=== PATIENT | female | born 1940 | race Caucasian/White ===

== ENCOUNTER → 2016-05-13 | Outpatient (CLI) | payer MEDICARE ==
--- NOTE | 2016-05-18 09:14 | MM ---
Reason for exam: screening (asymptomatic). Last mammogram was performed 2 years and 5 months ago. History: Patient is postmenopausal. Family history of breast cancer in paternal cousin. Took estrogen for 6 years. Took progesterone for 6 years. Physical Findings: A clinical breast exam by your physician is recommended on an annual basis and results should be correlated with mammographic findings. MG Screening Mammo w CAD Bilateral CC and MLO view(s) were taken. Prior study comparison: December 28, 2013, bilateral MG screening mammo w CAD. December 23, 2012, bilateral digital screening mammo w/CAD. There are scattered fibroglandular densities. Finding: There are typically benign grouped/clustered, fine calcifications in the upper quadrant, middle position of the right breast, increase in number, short term follow up recommended. Focal asymmetry in the right breast is stable. New finding since December 28, 2013 and December 23, 2012. ASSESSMENT: Probably benign, BI-RAD 3 RECOMMENDATION: Follow-up diagnostic mammogram of the right breast in 6 months.
== END | disposition home or self-care (01) ==
LOC: RADMAMWWP 13:49
PROVIDERS: ATTEND Internal Medicine
DX: Z12.31 Encounter for screening mammogram for malignant neoplasm of breast (principal)

== ENCOUNTER → 2016-11-17 | Outpatient (CLI) | payer MEDICARE ==
--- NOTE | 2016-11-17 13:45 | MM ---
Reason for exam: follow-up at short interval from prior study. Last mammogram was performed 6 months ago. History: Patient is postmenopausal. Family history of breast cancer in paternal cousin. Took estrogen for 6 years. Took progesterone for 6 years. Physical Findings: Nurse did not find any significant physical abnormalities on exam. MG 3D Diag Mammo W/Cad RT CC and MLO view(s) were taken of the right breast. Prior study comparison: May 13, 2016, bilateral MG screening mammo w CAD. December 28, 2013, bilateral MG screening mammo w CAD. There are scattered fibroglandular densities. There is no discrete abnormality. These results were verbally communicated with the patient and result sheet given to the patient on 11/17/16. ASSESSMENT: Negative, BI-RAD 1 RECOMMENDATION: Return to routine screening mammogram schedule for both breasts. Back on schedule for May 2017.
== END | disposition home or self-care (01) ==
LOC: RADMAMWWP 12:56
PROVIDERS: ATTEND Internal Medicine
DX: R92.8 Other abnormal and inconclusive findings on diagnostic imaging of breast (principal)
CPT/HCPCS: G0206; G0279

== ENCOUNTER 2017-03-27 11:43 | Inpatient (IN) | payer MEDICARE ==
--- NOTE | 2017-03-27 11:55 | ED ---
Neuro HPI - General Stated Complaint: Hypertension Time Seen by Provider: 03/27/17 11:43 Source: patient, family, EMS, RN notes reviewed Mode of arrival: EMS - History of Present Illness Is the patient presenting with stroke symptoms?: No Initial Comments: This is a 77-year-old female with no personal history of stroke with family history of strokes who is been under last stress recently she was brought in for evaluation due to suspicion for left facial droop and slurred speech with trouble processing a choosing words. This occurred sometime this morning family knows when he talked her and found that she was having difficulty with choosing words. Per her daughter they believe that lasted about 45 minutes. Per EMS she was slow to respond but seemed have no deficits on evaluation of stroke scale. No recent fall fevers chills nausea vomiting sweats or other symptoms - Related Data Home Medications: Home Medications Medication Instructions Recorded Confirmed Aspirin EC [Ecotrin Low Dose] 162 mg PO BID 03/27/17 03/27/17 Aspirin EC [Ecotrin Low Dose] 324 mg PO ONCE 03/27/17 03/27/17 Calcium Carb/Vitamin D3/Vit K1 1 tab PO DAILY 03/27/17 03/27/17 [Citracal Soft Chew] Glucosam/Emir-Msm1/C/Tyrell/Bosw 1 tab PO DAILY 03/27/17 03/27/17 [Glucosamine-Chondroitin Tablet] Losartan Potassium 100 mg PO DAILY 03/27/17 03/27/17 Pravastatin Sodium [Pravachol] 20 mg PO HS 03/27/17 03/27/17 Previous Rx's Medication Instructions Recorded Metoprolol Succinate (ER) [Toprol 50 mg PO DAILY #30 tab.er.24h 07/25/13 XL] Allergies/Adverse Reactions: Allergies Allergy/AdvReac Type Severity Reaction Status Date / Time valsartan [From Diovan] Allergy Rash/Hives Verified 03/27/17 12:17 Review of Systems ROS Statement: Those systems with pertinent positive or pertinent negative responses have been documented in the HPI. ROS Other: All systems not noted in ROS Statement are negative. General Exam - General Exam Comments Initial Comments: This is a well-developed well-nourished awake alert oriented 3 female General appearance: alert, in no apparent distress Head exam: Present: atraumatic, normocephalic, normal inspection Eye exam: Present: normal appearance, PERRL, EOMI. Absent: scleral icterus, conjunctival injection, periorbital swelling ENT exam: Present: normal exam, mucous membranes moist Neck exam: Present: normal inspection. Absent: tenderness, meningismus, lymphadenopathy Respiratory exam: Present: normal lung sounds bilaterally. Absent: respiratory distress, wheezes, rales, rhonchi, stridor Cardiovascular Exam: Present: regular rate, normal rhythm, normal heart sounds. Absent: systolic murmur, diastolic murmur, rubs, gallop, clicks GI/Abdominal exam: Present: soft, normal bowel sounds. Absent: distended, tenderness, guarding, rebound, rigid Extremities exam: Present: normal inspection, full ROM, normal capillary refill. Absent: tenderness, pedal edema, joint swelling, calf tenderness Back exam: Present: normal inspection Neurological exam: Present: alert, oriented X3, CN II-XII intact Psychiatric exam: Present: normal affect, normal mood Skin exam: Present: warm, dry, intact, normal color. Absent: rash Stroke MDM - Lab Data Result diagrams: 03/27/17 12:05 03/27/17 12:05 Lab Results 03/27/17 03/27/17 03/27/17 Range/Units 12:05 12:05 12:05 WBC (3.8-10.6) k/uL RBC (3.80-5.40) m/uL Hgb (11.4-16.0) gm/dL Hct (34.0-46.0) % MCV (80.0-100.0) fL MCH (25.0-35.0) pg MCHC (31.0-37.0) g/dL RDW (11.5-15.5) % Plt Count (150-450) k/uL Neutrophils % % Lymphocytes % % Monocytes % % Eosinophils % % Basophils % % Neutrophils # (1.3-7.7) k/uL Lymphocytes # (1.0-4.8) k/uL Monocytes # (0-1.0) k/uL Eosinophils # (0-0.7) k/uL Basophils # (0-0.2) k/uL Hypochromasia PT (9.0-12.0) sec INR (<1.2) APTT (22.0-30.0) sec Sodium (137-145) mmol/L Potassium (3.5-5.1) mmol/L Chloride (98-107) mmol/L Carbon Dioxide (22-30) mmol/L Anion Gap mmol/L BUN (7-17) mg/dL Creatinine (0.52-1.04) mg/dL Est GFR (MDRD) Af Amer (>60 ml/min/1.73 sqM) Est GFR (MDRD) Non-Af (>60 ml/min/1.73 sqM) Glucose (74-99) mg/dL Calcium (8.4-10.2) mg/dL Total Bilirubin (0.2-1.3) mg/dL AST (14-36) U/L ALT (9-52) U/L Alkaline Phosphatase (38-126) U/L Total Creatine Kinase 56 (30-135) U/L CK-MB (CK-2) 0.7 (0.0-2.4) ng/mL CK-MB (CK-2) Rel Index 1.3 Troponin I <0.012 (0.000-0.034) ng/mL Total Protein (6.3-8.2) g/dL Albumin (3.5-5.0) g/dL Urine Color Light Yellow Urine Appearance Clear (Clear) Urine pH 6.5 (5.0-8.0) Ur Specific [place] 1.006 (1.001-1.035) Urine Protein Negative (Negative) Urine Glucose (UA) Negative (Negative) Urine Ketones Negative (Negative) Urine Blood Negative (Negative) Urine Nitrite Negative (Negative) Urine Bilirubin Negative (Negative) Urine Urobilinogen <2.0 (<2.0) mg/dL Ur Leukocyte Esterase Negative (Negative) Influenza Type A RNA Not Detected (Not Detectd) Influenza Type B (PCR) Not Detected (Not Detectd) 03/27/17 03/27/17 03/27/17 Range/Units 12:05 12:05 12:05 WBC 8.7 (3.8-10.6) k/uL RBC 5.57 H (3.80-5.40) m/uL Hgb 14.4 (11.4-16.0) gm/dL Hct 46.5 H (34.0-46.0) % MCV 83.5 (80.0-100.0) fL MCH 25.8 (25.0-35.0) pg MCHC 30.9 L (31.0-37.0) g/dL RDW 14.1 (11.5-15.5) % Plt Count 233 (150-450) k/uL Neutrophils % 79 % Lymphocytes % 13 % Monocytes % 5 % Eosinophils % 2 % Basophils % 1 % Neutrophils # 6.8 (1.3-7.7) k/uL Lymphocytes # 1.1 (1.0-4.8) k/uL Monocytes # 0.4 (0-1.0) k/uL Eosinophils # 0.2 (0-0.7) k/uL Basophils # 0.1 (0-0.2) k/uL Hypochromasia Slight PT 9.9 (9.0-12.0) sec INR 1.0 (<1.2) APTT 22.4 (22.0-30.0) sec Sodium 143 (137-145) mmol/L Potassium 4.6 (3.5-5.1) mmol/L Chloride 107 (98-107) mmol/L Carbon Dioxide 21 L (22-30) mmol/L Anion Gap 15 mmol/L BUN 16 (7-17) mg/dL Creatinine 0.90 (0.52-1.04) mg/dL Est GFR (MDRD) Af Amer >60 (>60 ml/min/1.73 sqM) Est GFR (MDRD) Non-Af >60 (>60 ml/min/1.73 sqM) Glucose 107 H (74-99) mg/dL Calcium 9.8 (8.4-10.2) mg/dL Total Bilirubin 0.6 (0.2-1.3) mg/dL AST 22 (14-36) U/L ALT 26 (9-52) U/L Alkaline Phosphatase 83 (38-126) U/L Total Creatine Kinase (30-135) U/L CK-MB (CK-2) (0.0-2.4) ng/mL CK-MB (CK-2) Rel Index Troponin I (0.000-0.034) ng/mL Total Protein 7.5 (6.3-8.2) g/dL Albumin 4.5 (3.5-5.0) g/dL Urine Color Urine Appearance (Clear) Urine pH (5.0-8.0) Ur Specific [place] (1.001-1.035) Urine Protein (Negative) Urine Glucose (UA) (Negative) Urine Ketones (Negative) Urine Blood (Negative) Urine Nitrite (Negative) Urine Bilirubin (Negative) Urine Urobilinogen (<2.0) mg/dL Ur Leukocyte Esterase (Negative) Influenza Type A RNA (Not Detectd) Influenza Type B (PCR) (Not Detectd) - NIH Stroke Scale 1a. Level of Consciousness: (0) alert 1b. LOC Questions: (0) answers correctly 1c. LOC Commands: (0) performs tasks correctly 2. Best Gaze: (0) normal 3. Visual: (0) no visual loss 4. Facial Palsy: (0) normal symmetrical movement 5a. Motor Arm Left: (0) no drift 5b. Motor Arm Right: (0) no drift 6a. Motor Leg Left: (0) no drift 6b. Motor Leg Right: (0) no drift 7. Limb Ataxia: (0) absent 8. Sensory: (0) normal 9. Best Language: (0) no aphasia 10. Dysarthria: (0) normal 11. Extinction/Inattention: (0) no abnormality - Medical Decision Making I did discuss findings with the patient and multiple family members patient is improving the presentation seems consistent with a TIA. CAT scan is negative x- rays are negative labs are thus far nondiagnostic. Patient did have a fever when she presented the influenza is negative. This could be in the basis of a nonspecific viral infection no source is identified. Patient will be admitted for evaluation TIA I did discuss case Dr. Gay. - EKG Data -: EKG Interpreted by Me (Atrial fibrillation rate of 97 QRS 82 QT/QTC 382/[address] configur) Past Medical History Past Medical History: AFIB, Coronary Artery Disease (CAD), Hyperlipidemia, Hypertension History of Any Multi-Drug Resistant Organisms: None Reported Past Surgical History: Appendectomy Additional Past Surgical History / Comment(s): colonoscopy, heart catherization (no interventions) Past Anesthesia/Blood Transfusion Reactions: No Reported Reaction Additional Past Anesthesia/Blood Transfusion Reaction / Comment(s): pt has never received blood transfusions in the past Past Alcohol Use History: None Reported - Past Family History Mother Family Medical History: CVA/TIA Additional Family Medical History / Comment(s): HAD STROKE Father Family Medical History: Memory Impairment Additional Family Medical History / Comment(s): Alzheimer's, glaucoma Brother(s) Family Medical History: Cancer Additional Family Medical History / Comment(s): CA- UNKNOWN TYPE Course Vital Signs 03/27/17 03/27/17 03/27/17 11:45 13:41 14:22 Temperature 100.1 F H Pulse Rate 100 87 94 Respiratory 20 18 18 Rate Blood Pressure 185/91 182/81 184/81 O2 Sat by Pulse 98 97 98 Oximetry Disposition Clinical Impression: Transient ischemic attack (TIA), Fever, Chronic atrial fibrillation Disposition: ADMITTED IP TO THIS HOSP Condition: Stable Referrals: Montse Nielsen MD [Primary Care Provider] - 1-2 days
[2017-03-27 12:26] LABS: Appearance,Urine Clear (Clear); Basophils # (A) 0.1 k/uL (0-0.2); Basophils % (A) 1 %; Bilirubin,Urine Negative (Negative); Blood,Urine Negative (Negative); Color,Urine Light Yellow; Eosinophils # (A) 0.2 k/uL (0-0.7); Eosinophils % (A) 2 %; Glucose,Urine (UA) Negative (Negative); HCT 46.5 % (34.0-46.0); HGB 14.4 gm/dL (11.4-16.0); Hypochromasia Slight; Ketones,Urine Negative (Negative); Leukocyte Esterase,Urine Negative (Negative); Lymphocytes # (A) 1.1 k/uL (1.0-4.8); Lymphocytes % (A) 13 %; MCH 25.8 pg (25.0-35.0); MCHC 30.9 g/dL (31.0-37.0); MCV 83.5 fL (80.0-100.0); Mean Platelet Volume 7.2; Monocytes # (A) 0.4 k/uL (0-1.0); Monocytes % (A) 5 %; Neutrophils # (A) 6.8 k/uL (1.3-7.7); Neutrophils % (A) 79 %; Nitrite,Urine Negative (Negative); PH, Urine 6.5 (5.0-8.0); Platelet Count 233 k/uL (150-450); Protein,Urine Negative (Negative); RBC 5.57 m/uL (3.80-5.40); RDW 14.1 % (11.5-15.5); Specific Gravity,Urine 1.006 (1.001-1.035); Urobilinogen,Urine <2.0 mg/dL (<2.0); WBC 8.7 k/uL (3.8-10.6)
--- NOTE | 2017-03-27 12:39 | XR ---
EXAMINATION TYPE: XR chest 2V DATE OF EXAM: 03/27/2017 HISTORY: altered mental status. REFERENCE: Previous study dated 08/15/2013. FINDINGS: The lungs are clear. Pleural space are clear. The heart is not enlarged. There is hypertrop hic spondylosis within the spine. IMPRESSION: NO ACUTE INTRATHORACIC ABNORMALITY.
[2017-03-27 12:40] LABS: ALT 26 U/L (9-52); AST 22 U/L (14-36); Albumin 4.5 g/dL (3.5-5.0); Alkaline Phosphatase 83 U/L (38-126); Anion Gap 15 mmol/L; Blood Urea Nitrogen 16 mg/dL (7-17); Calcium 9.8 mg/dL (8.4-10.2); Carbon Dioxide 21 mmol/L (22-30); Chloride 107 mmol/L (98-107); Glucose 107 mg/dL (74-99); Potassium 4.6 mmol/L (3.5-5.1); Sodium 143 mmol/L (137-145); Total Bilirubin 0.6 mg/dL (0.2-1.3); Total Protein 7.5 g/dL (6.3-8.2)
--- NOTE | 2017-03-27 12:42 | CT ---
EXAMINATION TYPE: CT brain wo con DATE OF EXAM: 03/27/2017 COMPARISON: NONE HISTORY: Hypertension CT DLP: 981 mGycm Automated exposure control for dose reduction was used. FINDINGS: There are mild, generalized changes of sulcal prominence and ventriculomegaly compatible with mild at rophic change. There is diffuse periventricular white matter lucency, compatible with small vessel is chemic change. No acute focal lesion, mass effect or midline shift is seen. I do not see evidence of intracranial blood. Visualized portions of the paranasal sinuses and mastoids are clear. No depressed skull fracture is s een. IMPRESSION: 1. NO ACUTE INTRACRANIAL ABNORMALITY. 2. MILD DEGENERATIVE CHANGE.
[2017-03-27 12:44] LABS: Partial Thromboplastin Time 22.4 sec (22.0-30.0); Prothrombin Time 9.9 sec (9.0-12.0)
[2017-03-27 12:47] LABS: Creatine Kinase 56 U/L (30-135)
[2017-03-27 13:00] LABS: Creatine Kinase MB 0.7 ng/mL (0.0-2.4); Troponin I <0.012 ng/mL (0.000-0.034)
[2017-03-27] MEDS ORDERED: SODIUM CHLORIDE 0.9% 500 ML IV STA (14:48)
[2017-03-27] MEDS ORDERED: NON-FORMULARY DRUG (Aspirin Ec 324 MG) PO SCH (16:00)
[2017-03-27] MEDS: SODIUM CHLORIDE 0.9% 1,000 ML IV SCH (16:44)
--- NOTE | 2017-03-27 18:30 | P.CNNES ---
History of Present Illness Consult date: 03/27/17 History of Present Illness: The patient is a 77-year-old right-handed white female who states she woke up at 6:30 AM just not feeling right. She decided to go ahead and do her normal routines. She woke up she cooked she did her laundry and continued to feel not right. She states that her speech felt funny so she asked her moves stated that her speech did sound mumble he. She denied having any focal weakness or numbness or visual changes. She states she felt some right eye droopiness. She denied any dizziness or vertigo. She called her son and he suggested calling EMS and her daughter also spoke to her on the phone and felt that her mother's voice was tremoring. When EMS arrived the patient was able to walk to the EMS van. Entire episode of speech disturbance lasted for about 45 minutes. On route to the ER there was no focal neurologic deficits reported. states she is fine currently without any symptoms. In the emergency room she had a CT of the brain showed no acute intracranial abnormality. The patient takes aspirin. She had some bleeding from the right nostril this morning but she attributed that to dryness in the air. She is on 162 mg of aspirin twice a day. The patient has atrial fibrillation. She has not tolerated anticoagulants in the past. She states she has tried Pradaxa and Xarelto. The patient was admitted to the hospital with TIA and chronic atrial fibrillation. Neurology was consulted to see the patient for evaluation of TIA. Review of Systems All systems: negative Past Medical History Past Medical History: Atrial Fibrillation, Coronary Artery Disease (CAD), Hyperlipidemia, Hypertension History of Any Multi-Drug Resistant Organisms: None Reported Past Surgical History: Appendectomy Additional Past Surgical History / Comment(s): colonoscopy, heart catherization (no interventions) Past Anesthesia/Blood Transfusion Reactions: No Reported Reaction Additional Past Anesthesia/Blood Transfusion Reaction / Comment(s): pt has never received blood transfusions in the past Past Psychological History: No Psychological Hx Reported Smoking Status: Never smoker Past Alcohol Use History: Rare Past Drug Use History: None Reported - Past Family History Mother Family Medical History: CVA/TIA Additional Family Medical History / Comment(s): HAD STROKE Father Family Medical History: Memory Impairment Additional Family Medical History / Comment(s): Alzheimer's, glaucoma Brother(s) Family Medical History: Cancer Additional Family Medical History / Comment(s): CA- UNKNOWN TYPE Medications and Allergies Home Medications Medication Instructions Recorded Confirmed Type Metoprolol Succinate (ER) [Toprol 50 mg PO DAILY #30 tab.er.24h 07/25/13 Rx XL] Aspirin EC [Ecotrin Low Dose] 162 mg PO BID 03/27/17 03/27/17 History Aspirin EC [Ecotrin Low Dose] 324 mg PO ONCE 03/27/17 03/27/17 History Calcium Carb/Vitamin D3/Vit K1 1 tab PO DAILY 03/27/17 03/27/17 History [Citracal Soft Chew] Glucosam/Emir-Msm1/C/Tyrell/Bosw 1 tab PO DAILY 03/27/17 03/27/17 History [Glucosamine-Chondroitin Tablet] Losartan Potassium 100 mg PO DAILY 03/27/17 03/27/17 History Pravastatin Sodium [Pravachol] 20 mg PO HS 03/27/17 03/27/17 History Allergies Allergy/AdvReac Type Severity Reaction Status Date / Time valsartan [From [employer]] Allergy Rash/Hives Verified 03/27/17 12:17 Physical Examination - Vital Signs Vital Signs: Vital Signs Temp Pulse Pulse Resp BP BP Pulse Ox 03/27/17 16:25 97.0 F L 80 18 185/81 97 03/27/17 15:59 98.1 F 82 18 188/84 99 03/27/17 14:22 94 18 184/81 98 03/27/17 13:41 87 18 182/81 97 03/27/17 11:45 100.1 F H 100 20 185/91 98 Intake and Output 03/27/17 03/27/17 03/27/17 06:59 14:59 22:59 Other: Weight 68.039 kg Patient Weight 03/28/17 06:59 Weight 68.039 kg - Constitutional General appearance: average body habitus, cooperative, no acute distress - EENT EENT: PERRL, hearing intact, vision intact - Respiratory Respiratory: lungs clear, no respiratory distress - Cardiovascular Cardiovascular: normal S1, other (Heart rate irregularly irregular) Extremities: no peripheral edema bilaterally - Integumentary Integumentary: normal - Neurologic Cranial nerve examination: PERRL, EOMI, V1/V2/V3 grossly intact, face symmetric , tongue midline Speech examination: intact Detailed motor examination: grossly full strength in all extremities Detailed sensory examination: intact Reflex and gait examination: intact Reflexes: 2+: bicep - Psychiatric Psychiatric: mood/affect appropriate Results - Laboratory Findings CBC and BMP: 03/27/17 12:05 03/27/17 12:05 Abnormal Lab Findings: Abnormal Labs 03/27/17 03/27/17 12:05 12:05 RBC 5.57 H Hct 46.5 H MCHC 30.9 L Carbon Dioxide 21 L Glucose 107 H Assessment and Plan (1) Transient ischemic attack (TIA) Current Visit: Yes Status: Acute SNOMED Code(s): 465220027 (2) Chronic atrial fibrillation Current Visit: Yes Status: Chronic SNOMED Code(s): 667031368 Plan: The patient is a 77-year-old woman who woke up this morning with symptoms which she had difficulty describing but she just didn't feel right. She did notice some droopiness of the right eye. She did notice some change in her speech. The symptoms lasted for about 45 minutes. She was brought to the emergency room and evaluated and the decision was made to admit the patient for TIA. She is currently asymptomatic and there are no focal neuro deficits. Recommendation is for carotid ultrasound, echocardiogram, and cardiology evaluation . Also recommend MRI scan of the brain.
--- NOTE | 2017-03-27 20:29 | P.HPIM ---
History of Present Illness H&P Date: 03/27/17 Chief Complaint: slurred speech and Rt eye drooping The patient is a 77-year-old female with a PMH od HTN, HLD and chronic Afib. not on anticoagulation due to previous GI bleed was brought to ER by her family with c/o difficulty in speech / slurriness and also rt eye droopping. Her symptoms started at around 10 AM today. Pt. says she felt like heart racing up fast last night and today AM and has not been feeling well since she ruiz up today. denied Cp/SOB. no JOE or dizziness. Pt. was on coumadin and xarelto previous but was Dced due to GI bleed. no recent illness. He symptoms lasted for about 2 hrs. Her symptoms completed normalized now. CT of the brain showed no acute intracranial abnormality. The patient takes aspirin. EKG showed Afib Review of Systems Constitutional: Patient denies any fever or chills . no generalized weakness . No weight loss. Abdomen: no nausea vomiting and diarrhea and abdominal pain. Cardiovascular: Patient denies any chest pain or short of breath no palpitations. Respiratory: patient denied any cough is from production. No shortness of breath Neurologic: Patient denied any numbness or tingling headache. Musculoskeletal: Patient denies any complaints of joint swelling or deformity. Skin: Negative Psychiatric: Negative Endocrine: No heat or cold intolerance. No recent weight gain. Genitourinary: No dysuria or hematuria. All other 14 point ROS negative except the above Past Medical History Past Medical History: Atrial Fibrillation, Coronary Artery Disease (CAD), Hyperlipidemia, Hypertension History of Any Multi-Drug Resistant Organisms: None Reported Past Surgical History: Appendectomy Additional Past Surgical History / Comment(s): colonoscopy, heart catherization (no interventions) Past Anesthesia/Blood Transfusion Reactions: No Reported Reaction Additional Past Anesthesia/Blood Transfusion Reaction / Comment(s): pt has never received blood transfusions in the past Past Psychological History: No Psychological Hx Reported Smoking Status: Never smoker Past Alcohol Use History: Rare Past Drug Use History: None Reported - Past Family History Mother Family Medical History: CVA/TIA Additional Family Medical History / Comment(s): HAD STROKE Father Family Medical History: Memory Impairment Additional Family Medical History / Comment(s): Alzheimer's, glaucoma Brother(s) Family Medical History: Cancer Additional Family Medical History / Comment(s): CA- UNKNOWN TYPE Medications and Allergies Home Medications Medication Instructions Recorded Confirmed Type Metoprolol Succinate (ER) [Toprol 50 mg PO DAILY #30 tab.er.24h 07/25/13 Rx XL] Aspirin EC [Ecotrin Low Dose] 162 mg PO BID 03/27/17 03/27/17 History Aspirin EC [Ecotrin Low Dose] 324 mg PO ONCE 03/27/17 03/27/17 History Calcium Carb/Vitamin D3/Vit K1 1 tab PO DAILY 03/27/17 03/27/17 History [Citracal Soft Chew] Glucosam/Emir-Msm1/C/Tyrell/Bosw 1 tab PO DAILY 03/27/17 03/27/17 History [Glucosamine-Chondroitin Tablet] Losartan Potassium 100 mg PO DAILY 03/27/17 03/27/17 History Pravastatin Sodium [Pravachol] 20 mg PO HS 03/27/17 03/27/17 History Allergies Allergy/AdvReac Type Severity Reaction Status Date / Time valsartan [From [employer]] Allergy Rash/Hives Verified 03/27/17 12:17 Physical Exam Vitals: Vital Signs Temp Pulse Pulse Resp BP BP Pulse Ox 03/27/17 16:25 97.0 F L 80 18 185/81 97 03/27/17 15:59 98.1 F 82 18 188/84 99 03/27/17 14:22 94 18 184/81 98 03/27/17 13:41 87 18 182/81 97 03/27/17 11:45 100.1 F H 100 20 185/91 98 Intake and Output 03/27/17 03/27/17 03/27/17 06:59 14:59 22:59 Other: Weight 68.039 kg Patient Weight 03/28/17 06:59 Weight 68.039 kg Patient is lying in the bed comfortably, no acute distress, awake alert and oriented.. HEENT: Normocephalic. Neck is supple. Pupils reactive. Nostrils clear. Oral cavity is moist. Ears reveal no drainage. Neck reveals no JVD, carotid bruits, or thyromegaly. CHEST EXAMINATION: Trachea is central. Symmetrical expansion. Lung clale clear to auscultation and percussion. CARDIAC: Normal S1, S2 with no gallops. No murmurs ABDOMEN: Soft. Bowel sounds normal. No organomegaly. No abdominal bruits. Extremities: reveal no edema. No clubbing or cyanosis Neurologically awake, alert, oriented x3 with well-coordinated movements. No focal deficits noted Skin: No rash or skin lesions. Psychiatric: cooperative. Denied suicidal ideation Musculoskeletal: No joint swelling or deformity. Normal range of motion. Results CBC & Chem 7: 03/27/17 12:05 03/27/17 12:05 Labs: Abnormal Lab Results - Last 24 Hours (Table) 03/27/17 03/27/17 Range/Units 12:05 12:05 RBC 5.57 H (3.80-5.40) m/uL Hct 46.5 H (34.0-46.0) % MCHC 30.9 L (31.0-37.0) g/dL Carbon Dioxide 21 L (22-30) mmol/L Glucose 107 H (74-99) mg/dL Thrombosis Risk Factor Assmnt - DVT/VTE Prophylaxis DVT/VTE Prophylaxis: Pharmacologic Prophylaxis ordered - Choose All That Apply Any of the Below Risk Factors Present?: No Other Risk Factors: No Other congenital or acquired thrombophilia - If yes, enter type in comment: No Each Risk Factor Represents 5 Points: Stroke (< 1 month) Thrombosis Risk Factor Assessment Total Risk Factor Score: 5 Thrombosis Risk Factor Assessment Level: High Risk Assessment and Plan Assessment: Rt eye drooping with Slurred speech due to TIA. NOrmalized now. Chronic Afib. on ASA at home. not on anticoagulation due to previous GI bleed. Hb 14.4 HTN Hyperlidemia Plan. Pt. will be continued on ASA. Neurology was consulted. c/w home BP medications. consult Cardiology regading anticoagulation recommendations. further recommendations based on clinical course. Time with Patient: Greater than 30
[2017-03-27] MEDS: ASPIRIN 81 MG PO SCH (20:40)
[2017-03-27] MEDS ORDERED: PRAVASTATIN SODIUM 20 MG TAB PO SCH (21:00)
[2017-03-28 03:49] LABS: Cholesterol 135 mg/dL (<200); HDL Cholesterol 49 mg/dL (40-60); LDL Cholesterol,Calculated 54 mg/dL (0-99); Triglycerides 159 mg/dL (<150)
[2017-03-28] MEDS: SODIUM CHLORIDE 0.9% 1,000 ML IV SCH (08:01)
[2017-03-28] MEDS: ASPIRIN 81 MG PO SCH (08:02)
[2017-03-28] MEDS: CALCIUM CARB-VIT D 500MG-200UN 1 EACH TAB PO SCH (08:02)
[2017-03-28] MEDS: METOPROLOL SUCCINATE (ER) 50 MG TAB.ER.24H PO SCH (08:02)
[2017-03-28] MEDS: LOSARTAN 50 MG TAB PO SCH (08:02)
[2017-03-28] MEDS ORDERED: NON-FORMULARY DRUG (Glucosam/Chon-Msm1/C/Mang/Bosw [Glucosamine-Chondroitin Tablet] 1 TAB) PO SCH (09:00)
--- NOTE | 2017-03-28 10:58 | CONS ---
CONSULTATION Mrs. Smith is a 77-year-old female with a history of atrial fibrillation, history of hypertension and hyperlipidemia, who presented to the emergency room with an episode of dysarthria and speech disturbance. The episode lasted for about 45 minutes. She is back to her baseline at this point. The patient has a history of atrial fibrillation, has been treated with Pradaxa and Xarelto in the past, but had episode of bleeding. She has no history of significant coronary artery disease. No history of CHF. Her activity level is stable. She has no dizziness. She has occasional palpitations. No syncope. No clear PND nor orthopnea. She had no prior TIA in the past. Her coronary risk factors are remarkable for hypertension, hyperlipidemia. She is a nonsmoker, nondiabetic. Her medication include losartan 100 mg daily, metoprolol succinate 50 mg daily, aspirin once a day. The patient has not taking her statin because of her joint pain. REVIEW OF SYSTEMS: Respiratory system: She has no documented history of asthma and emphysema or bronchitis. GI system: She had remote GI bleeding but not recently. system: No dysuria or hematuria. Nervous system: No prior history of seizure. PHYSICAL EXAMINATION: 77-year-old female, alert, oriented, in no apparent distress. Blood pressure running in the 120s to 160s with a heart in 90s. HEAD: Normocephalic. Eyes sclerae anicteric. Neck good upstroke. No bruit. No jugular venous distention. LUNGS: Clear to auscultation. Heart irregular regular, S1, S2. No S3 with a systolic murmur. No diastolic murmur. No rub. ABDOMEN: Soft, nontender. Positive bowel sounds. No organomegaly. EXTREMITIES: No edema. Intact pulses. LAB DATA: EKG reveals atrial fibrillation, rate of [address]-T wave changes. Chest x-ray shows no acute infiltrate. Brain CT shows no acute bleeding. Lab data revealed a hemoglobin of 14.4, BUN and creatinine of 16 and 0.9, and troponin less than 0.012. Cholesterol 135, LDL of 54. IMPRESSION: 1. Transient ischemic attack in a patient with history of atrial fibrillation, not anticoagulated. 2. Hypertension. 3. Prior history of hyperlipidemia. RECOMMENDATION: I have discussed with her the issue of anticoagulation. We will try her on Eliquis 5 mg twice a day. If she had any further episode of bleeding, then one consideration will be the Watchman device. Otherwise, we will continue on beta harjeet and the angiotensin receptor harjeet. I will add a statin to her regimen. An echocardiogram with Doppler will be obtained and depending on results of testing, further recommendation will be made. Thank you for this consult. We will follow with you. MMODL / IJN: [id number] /
[2017-03-28] MEDS: APIXABAN 5 MG TAB PO SCH ×2 (12:17→20:55)
--- NOTE | 2017-03-28 14:13 | P.PN ---
Subjective Progress Note Date: 03/28/17 The patient is a 77-year-old woman who was admitted to the hospital on March 27 with episode of dysarthria and speech disturbance. She states she is feeling much better today. There is been on no recurrence of speech disturbance since admission to the emergency room. Her entire episode lasted 45 minutes at home. She denies any other neurologic complaints such as focal weakness numbness visual loss or dizziness. She states she walked in the hallway today without a problem. She had a CAT scan of the brain on admission which did not show any acute intracranial abnormality. She has a history of atrial fibrillation and has been on aspirin 162 mg twice a day. She has been on anticoagulation in the past with Peridex on Xarelto which she could not tolerate. The patient is awaiting carotid ultrasound, echocardiogram, and MRI scan of the brain. Objective - Vital Signs Vital signs: Vital Signs Temp 97.2 F L 03/28/17 12:00 Pulse 96 03/28/17 12:00 Resp 17 03/28/17 12:00 BP 130/67 03/28/17 12:00 Pulse Ox 96 03/28/17 12:00 Intake & Output 03/27/17 03/28/17 03/28/17 18:59 06:59 18:59 Intake Total 360 Output Total 300 Balance -300 360 Weight 68.039 kg 68.3 kg Intake: Oral 360 Output: Urine 300 Other: # Voids 1 1 - Constitutional General appearance: Present: average body habitus, cooperative - EENT Eyes: Present: EOMI, PERRLA - Respiratory Respiratory: bilateral: CTA - Cardiovascular Rhythm: irregularly irregular - Neurologic Neurologic Comment(s): Mental status she was awake alert and oriented 3 her speech was fluent there was no a aphasia or dysarthria cranial most 2 through 12 grossly intact motor examination revealed no focal weakness Neurologic: Present: CNII-XII intact - Musculoskeletal Musculoskeletal: Present: strength equal bilaterally - Psychiatric Psychiatric: Present: A&O x's 3 - Labs CBC & Chem 7: 03/27/17 12:05 03/27/17 12:05 Labs: Abnormal Lab Results - Last 24 Hours (Table) 03/27/17 Range/Units 12:05 Triglycerides 159 H (<150) mg/dL Assessment and Plan (1) Transient ischemic attack (TIA) Current Visit: Yes Status: Acute SNOMED Code(s): 377351466 (2) Chronic atrial fibrillation Current Visit: Yes Status: Chronic SNOMED Code(s): 831405179 Plan: The patient is a 77-year-old woman who woke up yesterday morning with symptoms which she had difficulty describing but she just didn't feel right. She did notice some droopiness of the right eye. She did notice some change in her speech. The symptoms resolved within 45 minutes. She had a CT of the brain which showed no acute abnormality. She has not had any recurrence of symptoms during her hospitalization. She is feeling well today. We're awaiting MRI scan of the brain as well as carotid ultrasound and echocardiogram.
--- NOTE | 2017-03-28 15:44 | US ---
EXAMINATION TYPE: US carotid duplex BILAT DATE OF EXAM: 03/28/2017 COMPARISON: NONE CLINICAL HISTORY: TIA. TIA EXAM MEASUREMENTS: RIGHT: Peak Systolic Velocity (PSV) cm/sec ----- Right CCA: 54.8 ----- Right ICA: 102.2 ----- Right ECA: 94.3 ICA/CCA ratio: 1.9 RIGHT: End Diastole cm/sec ----- Right CCA: 15.3 ----- Right ICA: 39.0 ----- Right ECA: 14.2 LEFT: Peak Systolic Velocity (PSV) cm/sec ----- Left CCA: 72.9 ----- Left ICA: 106.5 ----- Left ECA: 72.0 ICA/CCA ratio: 1.5 LEFT: End Diastole cm/sec ----- Left CCA: 22.3 ----- Left ICA: 48.2 ----- Left ECA: 7.8 VERTEBRALS (direction of flow): Right Vertebral: Antegrade Left Vertebral: Antegrade Rhythm: Arrhythmia Bilateral intimal thickening, plaque bilateral bulb greater on the right, no elevated velocities, rivera ewhat high right ICA/CCA ratio of 1.9. IMPRESSION: 1. There is no evidence of hemodynamically significant stenosis within either carotid arterial system . The right internal carotid artery to common carotid artery ratio is noted to be upper limits of nor mal approaching criteria for 50% stenosis of the right internal carotid artery. 2. Cardiac arrhythmia incidentally noted. Correlate with EKG.
[2017-03-28] MEDS ORDERED: MELATONIN 3 MG TABLET PO PRN (21:50)
--- NOTE | 2017-03-28 22:33 | P.PN ---
Subjective Progress Note Date: 03/28/17 Principal diagnosis: TIA The patient is a 77-year-old female with a PMH od HTN, HLD and chronic Afib. not on anticoagulation due to previous GI bleed was brought to ER by her family with c/o difficulty in speech / slurriness and also rt eye droopping. Her symptoms started at around 10 AM today. Pt. says she felt like heart racing up fast last night and today AM and has not been feeling well since she ruiz up today. denied Cp/SOB. no JOE or dizziness. Pt. was on coumadin and xarelto previous but was Dced due to GI bleed. no recent illness. He symptoms lasted for about 2 hrs. Her symptoms completed normalized now. CT of the brain showed no acute intracranial abnormality. The patient takes aspirin. EKG showed Afib 03/28/2017 Patient denied any new complaints today. Patient was started on anticoagulation with eliquis. No complaints of chest pain or shortness of breath. No other acute overnight issues. Carotid duplex showed no symptoms stenosis. MRI was ordered as per neurology. 2-D echo to be done. All other review of systems negative except above Current medications reviewed Objective - Vital Signs Vital signs: Vital Signs Temp 98.3 F 03/28/17 15:39 Pulse 95 03/28/17 15:39 Resp 17 03/28/17 15:39 BP 161/88 03/28/17 15:39 Pulse Ox 97 03/28/17 15:39 Intake & Output 03/28/17 03/28/17 03/29/17 06:59 18:59 06:59 Intake Total 1080 Output Total 300 Balance -300 1080 Weight 68.3 kg Intake: Oral 1080 Output: Urine 300 Other: # Voids 1 1 - Exam PHYSICAL EXAMINATION: Patient is lying in the bed comfortably, no acute distress, awake alert and oriented.. HEENT: Normocephalic. Neck is supple. Pupils reactive. Nostrils clear. Oral cavity is moist. Ears reveal no drainage. Neck reveals no JVD, carotid bruits, or thyromegaly. CHEST EXAMINATION: Trachea is central. Symmetrical expansion. Lung calle clear to auscultation and percussion. CARDIAC: Normal S1, S2 with no gallops. No murmurs . Irregularly Irregular rhythm ABDOMEN: Soft. Bowel sounds normal. No organomegaly. No abdominal bruits. Extremities: reveal no edema. No clubbing or cyanosis Neurologically awake, alert, oriented x3 with well-coordinated movements. No focal deficits noted Skin: No rash or skin lesions. Psychiatric: Coperative. Nonsuicidal Musculoskeletal: No joint swelling or deformity. Normal range of motion. - Labs CBC & Chem 7: 03/27/17 12:05 03/27/17 12:05 Labs: Abnormal Lab Results - Last 24 Hours (Table) 03/27/17 Range/Units 12:05 Triglycerides 159 H (<150) mg/dL Assessment and Plan Assessment: Rt eye drooping with Slurred speech due to TIA. Normalized now. Chronic Afib. on ASA at home. not on anticoagulation due to previous GI bleed. Hb 14.4. Started on Eliquis HTN Hyperlidemia Plan. Pt. will be continued anti-coagulation. Aspirin will be held.. Neurology is following. MRI was ordered. Carotid duplex was done and 2-D echo was ordered as well. c/w home BP medications. Cardiology is following as well.. further recommendations based on clinical course. Discussed with family at bedside in detail. Time with Patient: Greater than 30
[2017-03-28 22:39] VITALS: RESP 18
[2017-03-29] MEDS ORDERED: LORazepam 2 MG/ML INJ IV ONE (06:00)
[2017-03-29 06:37] LABS: Basophils # (A) 0.1 k/uL (0-0.2); Basophils % (A) 1 %; Eosinophils # (A) 0.3 k/uL (0-0.7); Eosinophils % (A) 4 %; HCT 41.3 % (34.0-46.0); HGB 12.5 gm/dL (11.4-16.0); Hypochromasia Slight; Lymphocytes # (A) 2.7 k/uL (1.0-4.8); Lymphocytes % (A) 31 %; MCH 25.1 pg (25.0-35.0); MCHC 30.4 g/dL (31.0-37.0); MCV 82.7 fL (80.0-100.0); Mean Platelet Volume 7.8; Monocytes # (A) 0.7 k/uL (0-1.0); Monocytes % (A) 8 %; Neutrophils # (A) 4.9 k/uL (1.3-7.7); Neutrophils % (A) 56 %; Platelet Count 222 k/uL (150-450); RBC 4.99 m/uL (3.80-5.40); RDW 15.6 % (11.5-15.5); WBC 8.8 k/uL (3.8-10.6)
[2017-03-29 06:45] LABS: Anion Gap 10 mmol/L; Blood Urea Nitrogen 18 mg/dL (7-17); Calcium 9.6 mg/dL (8.4-10.2); Carbon Dioxide 25 mmol/L (22-30); Chloride 107 mmol/L (98-107); Glucose 96 mg/dL (74-99); Potassium 4.8 mmol/L (3.5-5.1); Sodium 142 mmol/L (137-145)
[2017-03-29] MEDS: CALCIUM CARB-VIT D 500MG-200UN 1 EACH TAB PO SCH (07:57)
[2017-03-29] MEDS: LOSARTAN 50 MG TAB PO SCH (07:57)
[2017-03-29] MEDS: APIXABAN 5 MG TAB PO SCH (07:57)
[2017-03-29] MEDS: METOPROLOL SUCCINATE (ER) 50 MG TAB.ER.24H PO SCH (07:57)
[2017-03-29] MEDS ORDERED: ATORVASTATIN 20 MG TAB PO SCH (09:00)
--- NOTE | 2017-03-29 10:03 | ECHOF ---
Referral Reason:afib MEASUREMENTS -------- HEIGHT: 165.1 cm WEIGHT: 67.6 kg BP: 140/89 RVIDd: 2.4 cm (< 3.3) IVSd: 0.8 cm (0.6 - 1.1) LVIDd: 4.1 cm (3.9 - 5.3) LVPWd: 1.0 cm (0.6 - 1.1) IVSs: 1.2 cm LVIDs: 2.7 cm LVPWs: 1.5 cm LA Diam: 3.3 cm (2.7 - 3.8) LAESV Index (A-L): 32.07 ml/m Ao Diam: 3.2 cm (2.0 - 3.7) AV Cusp: 2.1 cm (1.5 - 2.6) LA Diam: 3.1 cm (2.7 - 3.8) MV EXCURSION: 16.269 mm (> 18.000) MV EF SLOPE: 95 mm/s (70 - 150) EPSS: 0.4 cm MV E Jeffrey: 0.83 m/s MV DecT: 178 ms MV A Jeffrey: 0.28 m/s MV E/A Ratio: 2.94 AR PHT: 502 ms RAP: 5.00 mmHg RVSP: 37.00 mmHg FINDINGS -------- Atrial fibrillation. This was a technically good study. The left ventricular size is normal. Overall left ventricular systolic function is normal with, an EF between 55 - 60 %. The right ventricle is normal in size. LA is moderately dilated 34-39 ml/m2 The right atrial size is normal. There is mild aortic regurgitation. Mild mitral annular calcification present. Mild mitral regurgitation is present. Mild tricuspid regurgitation present. There is no evidence of pulmonary hypertension. The right v entricular systolic pressure, as measured by Doppler, is 37.00mmHg. Trace/mild (physiologic) pulmonic regurgitation. The aortic root size is normal. There is no pericardial effusion. CONCLUSIONS -------- 1. The left ventricular size is normal. 2. Overall left ventricular systolic function is normal with, an EF between 55 - 60 %. 3. LA is moderately dilated 34-39 ml/m2 4. There is mild aortic regurgitation. 5. Mild mitral annular calcification present. 6. Mild mitral regurgitation is present. 7. Mild tricuspid regurgitation present. 8. There is no evidence of pulmonary hypertension. 9. The right ventricular systolic pressure, as measured by Doppler, is 37.00mmHg. 10. Trace/mild (physiologic) pulmonic regurgitation. 11. The aortic root size is normal. 12. There is no pericardial effusion. [employer]ER: Marianne Wood RDCS
[2017-03-29] MEDS: SODIUM CHLORIDE 0.9% 1,000 ML IV SCH (10:07)
[2017-03-29 11:03] VITALS: BP 129/66; PULSE 88; TEMP 97.6
--- NOTE | 2017-03-29 11:39 | MR ---
EXAMINATION TYPE: MR brain wo con DATE OF EXAM: 03/29/2017 COMPARISON: NONE HISTORY: TIA T1-weighted sagittal, T2, FLAIR, and diffusion axial, and T2 coronal coronal views of the brain are s ubmitted. There is abnormal signal in the right frontal parietal cortex on diffusion imaging compatible with ac tulalip ischemia. No midline shift. There are multiple foci of abnormal signal involving the white matter compatible with remote microvas cular ischemia. Area of abnormal signal involving the left parietal cortex near the temporal parietal junction is compatible with remote ischemia. There is moderate generalized degenerative change. Changes of chronic sinusitis noted. Craniocervical junction maintained. Sella turcica has a normal appearance. No cerebellopontine angle mass. IMPRESSION: 1. Acute ischemia involving the right frontal parietal junction with no significant midline shift or mass effect. Patient's nurse immediately notified by telephone. A Red message has been communicated to Nicole Mir via the [employer] Critical Result system on 03/29/2017 11:34 AM, Message ID [id number].
--- NOTE | 2017-03-29 12:37 | PN ---
PROGRESS NOTE Mrs. Smith is a 77-year-old female who presented with a TIA. She was noted to be in atrial fibrillation. She is doing well this morning. Her breathing is stable. Her speech is almost back to baseline. She denies any chest pain. No dizziness. No palpitation. She has no nausea. She continued to be in atrial fibrillation with controlled ventricular response. She continued to be on Eliquis 5 mg twice a day, Lipitor 20 mg daily, losartan 100 mg daily, metoprolol succinate 50 mg daily. PHYSICAL EXAMINATION: Blood pressure 129/60 with the heart rate in the 80s. LUNGS: Clear. HEART: Irregular, irregular. S1, S2. No S3. No rub. ABDOMEN: Soft, nontender. EXTREMITIES: No edema. LAB DATA: BUN and creatinine of 18 and 0.89. Potassium 4.8. Her echocardiogram revealed preserved left ventricular size and systolic function. IMPRESSION: 1. Transient ischemic attack, almost resolved. 2. Atrial fibrillation, persistent. 3. Hyperlipidemia. 4. Hypertension. RECOMMENDATION: Patient should be able to be discharged home today and follow as an outpatient. MMODL / IJN: [id number] /
--- NOTE | 2017-03-30 01:09 | P.DS ---
Providers Date of admission: 03/27/17 15:55 Expected date of discharge: 03/29/17 Attending physician: Cristhian Gay Consults: 03/27/17 15:56 Consult Physician Routine Consulting Provider: Nicole Mir Consult Reason/Comments: TIA Do you want consulting provider notified?: Yes 03/27/17 16:16 Consult Physician Stat Consulting Provider: Yfn Villegas Consult Reason/Comments: anticoagulation Do you want consulting provider notified?: Yes Primary care physician: Montse Nielsen Hospital Course: Discharge diagnosis Acute right frontal/parietal junction CVA. Rt eye drooping with Slurred speech. Drooping resolved. Still have some residual speech difficulty. Chronic Afib. on ASA at home. not on anticoagulation due to previous GI bleed. Hb 14.4. Started on Eliquis HTN Hyperlidemia Hospital course The patient is a 77-year-old female with a PMH od HTN, HLD and chronic Afib. not on anticoagulation due to previous GI bleed was brought to ER by her family with c/o difficulty in speech / slurriness and also rt eye droopping. Her symptoms started at around 10 AM today. Pt. says she felt like heart racing up fast last night and today AM and has not been feeling well since she ruiz up today. denied Cp/SOB. no JOE or dizziness. Pt. was on coumadin and xarelto previous but was Dced due to GI bleed. no recent illness. He symptoms lasted for about 2 hrs. Her symptoms completed normalized now. CT of the brain showed no acute intracranial abnormality. The patient takes aspirin. EKG showed Afib 03/28/2017 Patient denied any new complaints today. Patient was started on anticoagulation with eliquis. No complaints of chest pain or shortness of breath. No other acute overnight issues. Carotid duplex showed no symptoms stenosis. 03/29/2017 Patient was seen and examined. Patient is still having residual speech difficulty. Seen by PT OT and speech swallow. MRI of the brain showed acute ischemia involving right frontal/parietal junction. Patient will be continued on anticoagulation. We will request home physical therapy and speech therapy. TRISHA was not recommended by cardiology since the patient is already on anticoagulation. Otherwise patient is stable be discharged home. Discussed with family in detail regarding stroke prophylaxis and complications with anti- coagulation and early recognision of symptoms. Aspirin will be held.. Patient was seen by Neurology and cardiology. 2-D echo showed normal ejection fraction. Dilated left atrium. Otherwise no abnormality noted. c/w home BP medications. Discharge physical examination PHYSICAL EXAMINATION: Patient is lying in the bed comfortably, no acute distress, awake alert and oriented.. HEENT: Normocephalic. Neck is supple. Pupils reactive. Nostrils clear. Oral cavity is moist. Ears reveal no drainage. Neck reveals no JVD, carotid bruits, or thyromegaly. CHEST EXAMINATION: Trachea is central. Symmetrical expansion. Lung calle clear to auscultation and percussion. CARDIAC: Normal S1, S2 with no gallops. No murmurs ABDOMEN: Soft. Bowel sounds normal. No organomegaly. No abdominal bruits. Extremities: reveal no edema. No clubbing or cyanosis Neurologically awake, alert, oriented x3 with well-coordinated movements. No focal deficits noted Skin: No rash or skin lesions. Psychiatric: Cooperative. Nonsuicidal Musculoskeletal: No joint swelling or deformity. Normal range of motion. Total time taken greater than 35 minutes including 18 minutes for counseling and coordination of care. Patient Condition at Discharge: Stable Plan - Discharge Summary New Discharge Prescriptions: New Apixaban [Eliquis] 5 mg PO BID #60 tab Continue Metoprolol Succinate (ER) [Toprol XL] 50 mg PO DAILY #30 tab.er.24h Pravastatin Sodium [Pravachol] 20 mg PO HS Losartan Potassium 100 mg PO DAILY Glucosam/Emir-Msm1/C/Tyrell/Bosw [Glucosamine-Chondroitin Tablet] 1 tab PO DAILY Calcium Carb/Vitamin D3/Vit K1 [Citracal Soft Chew] 1 tab PO DAILY Discontinued Aspirin EC [Ecotrin Low Dose] 324 mg PO ONCE Aspirin EC [Ecotrin Low Dose] 162 mg PO BID Discharge Medication List Metoprolol Succinate (ER) [Toprol XL] 50 mg PO DAILY #30 tab.er.24h 07/25/13 [Rx ] Calcium Carb/Vitamin D3/Vit K1 [Citracal Soft Chew] 1 tab PO DAILY 03/27/17 [ History] Glucosam/Emir-Msm1/C/Tyrell/Bosw [Glucosamine-Chondroitin Tablet] 1 tab PO DAILY 03/27/17 [History] Losartan Potassium 100 mg PO DAILY 03/27/17 [History] Pravastatin Sodium [Pravachol] 20 mg PO HS 03/27/17 [History] Apixaban [Eliquis] 5 mg PO BID #60 tab 03/29/17 [Rx] Follow up Appointment(s)/Referral(s): [facility], [NON-STAFF] - (Contact number changed to Harriet Smith at [phone].) Yfn Villegas MD [STAFF PHYSICIAN] - 3 Weeks (Scheduled appointment for heart monitor on April 08, please order picker/assembler anytime from 12:30-4 PM. Follow up May 20 @ 2:[address] Villegas.) Nicole Mir MD [STAFF PHYSICIAN] - 3 Weeks (Office will call with follow up appointment.) Montse Nielsen MD [Primary Care Provider] - 03/31/17 2:30 pm (Wednesday) Patient Instructions/Handouts: A-fib (Atrial Fibrillation) (DC), Ischemic Stroke (DC) Activity/Diet/Wound Care/Special Instructions: pts copay before deductible for her Eliquis is $122 Discharge Disposition: HOME WITH HOME HEALTH SERVICES
== END 2017-03-29 16:15 | disposition home health service (06) | DRG 65 ==
LOC: EC 11:43 → 6SEL 15:55
PROVIDERS: ADMIT Internal Medicine; ATTEND Internal Medicine
DX: I63.9 Cerebral infarction, unspecified (principal); I48.1 Persistent atrial fibrillation; E78.5 Hyperlipidemia, unspecified; I48.2 Chronic atrial fibrillation; I10 Essential (primary) hypertension; I25.10 Atherosclerotic heart disease of native coronary artery without angina pectoris; R47.81 Slurred speech; H02.401 Unspecified ptosis of right eyelid; R29.700 NIHSS score 0; Z88.8 Allergy status to other drugs, medicaments and biological substances; Z79.899 Other long term (current) drug therapy; Z79.82 Long term (current) use of aspirin; Z82.3 Family history of stroke; Z82.0 Family history of epilepsy and other diseases of the nervous system; Z90.49 Acquired absence of other specified parts of digestive tract
CPT/HCPCS: 36415; 70450; 70551; 71046; 80048; 80053; 80061; 81003; 82550; 82553; 84484; 85025; 85610; 85730; 87502; 93005; 93306; 93880; 99285

== ENCOUNTER → 2017-12-22 | Outpatient (CLI) | payer MEDICARE ==
--- NOTE | 2017-12-22 14:39 | MM ---
Reason for exam: screening (asymptomatic). Last mammogram was performed 1 year and 1 month ago. History: Patient is postmenopausal. Family history of breast cancer in paternal cousin. Took estrogen for 6 years. Took progesterone for 6 years. Physical Findings: A clinical breast exam by your physician is recommended on an annual basis and results should be correlated with mammographic findings. MG 3D Screening Mammo W/Cad Bilateral CC and MLO view(s) were taken. Prior study comparison: November 17, 2016, right breast MG 3d diag mammo w/cad RT. May 13, 2016, bilateral MG screening mammo w CAD. The breast tissue is heterogeneously dense. This may lower the sensitivity of mammography. No suspicious abnormality. ASSESSMENT: Negative, BI-RAD 1 RECOMMENDATION: Routine screening mammogram of both breasts in 1 year.
== END ==
LOC: RADMAMWWP 11:30
PROVIDERS: ATTEND Internal Medicine
DX: Z12.31 Encounter for screening mammogram for malignant neoplasm of breast (principal)
CPT/HCPCS: 77063; 77067

== ENCOUNTER → 2019-01-26 | Outpatient (CLI) | payer MEDICARE ==
[2019-01-26 15:23] LABS: HCT 37.6 % (34.0-46.0); Hypochromasia Moderate; MCH 26.5 pg (25.0-35.0); MCHC 31.8 g/dL (31.0-37.0); MCV 83.5 fL (80.0-100.0); Mean Platelet Volume 6.6; Platelet Count 241 k/uL (150-450); Potassium 4.5 mmol/L (3.5-5.1); RDW 14.3 % (11.5-15.5); WBC 8.3 k/uL (3.8-10.6)
== END | disposition home or self-care (01) ==
LOC: LABPAT 13:57
PROVIDERS: ATTEND Internal Medicine Interventional Cardiology
DX: Z01.812 Encounter for preprocedural laboratory examination (principal); I25.10 Atherosclerotic heart disease of native coronary artery without angina pectoris
CPT/HCPCS: 80051; 82565; 84520; 85027

== ENCOUNTER → 2019-02-03 | Day surgery (SDC) | payer MEDICARE ==
[2019-02-01 16:02] VITALS: BMI 24.2
[~2019-02-03] MED LIST: ALPRAZolam 0.25 MG TAB PO PRN; ALPRAZolam 0.5 MG TAB PO PRN; ASPIRIN 325 MG TAB PO STA; ATORVASTATIN 80 MG TAB PO STA; HEPARIN SODIUM 1,000 UN/ML (10ML VL) IV ONE; HEPARIN SODIUM 1,000 UN/ML (10ML VL) ONE; IOPAMIDOL-370 125ML BTL INJ ONE; IV FLUID CONTINUATION 550 ML IV ONE; LIDOCAINE 1% INJ 10MG/ML (20 ML MDV) ONE; LIDOCAINE 1% INJ 10MG/ML (20 ML MDV) SQ ONE; METOPROLOL SUCCINATE (ER) 50 MG TAB.ER.24H PO SCH; MIDAZOLAM 2 MG/2 ML VIAL IVP ONE; MULTIVITAMINS, THERA 1 EACH TAB PO SCH; NITROGLYCERIN SL TABS 0.4 MG TAB SUBLINGUAL PRN; NON FORMULARY DRUG (Losartan Potassium [Losartan Potassium] 100 MG) PO SCH; PRAVASTATIN SODIUM 20 MG TAB PO SCH; RX INFO: IV CONTRAST WAS GIVEN 1 EACH MISC MISCELLANE PRN; SODIUM CHLORIDE 0.9% 1,000 ML IV SCH; SODIUM CHLORIDE 0.9% 1,000 ML in EMPTY BAG 1 BAG IV ONE; VERAPAMIL 2.5 MG/ML 2 ML AMP ONE; VERAPAMIL SYRINGE (5 MG/10 ML) INTRAARTER ONE; amLODIPine 5 MG TAB PO SCH; fentaNYL (PF) 50 MCG/ML 2 ML AMP IVP ONE; fentaNYL (PF) 50 MCG/ML 2 ML AMP ONE
[2019-02-03 06:24] VITALS: TEMP 97.7
[2019-02-03] MEDS: BENZOCAINE SPRAY 1 CAN MUCOUS MEM ONE ×2 (07:14→07:16)
--- NOTE | 2019-02-03 08:02 | ECHOT ---
TRANSESOPHAGEAL ECHOCARDIOGRAM INDICATION: Evaluation of mitral valve. PROCEDURE: After explaining the procedure to the patient its risks and the complications, blood pressure, heart rate, O2 saturation was monitored. The throat was sprayed with Cetacaine. She received 3 mg intravenous Versed, 50 mcg intravenous fentanyl. The probe was introduced in the esophagus without difficulty. Images were obtained. Following that, the probe was removed. There was no immediate complication. FINDINGS: Left atrial size is dilated. Left atrial appendage is normal. Left ventricular size is normal. There is evidence of mild global hypokinesis, estimated ejection fraction 45% to 50%. The mitral valve revealed mild thickening of the mitral valve leaflets with no prolapse. Mild thickening of the aortic valve leaflets were noted. Tricuspid valve is normal. Descending thoracic aorta revealed mild atherosclerotic changes. No pericardial effusion was noted. Doppler pulse wave and color Doppler obtained and revealed moderate severe multi jet mitral regurgitation with moderate tricuspid regurgitation. Estimated right ventricular systolic pressure was 41 mmHg. Mild aortic regurgitation was noted. There was no shunting across the interatrial septum. CONCLUSION: 1. Dilated left atrium with normal appearance left atrial appendage. 2. Normal left ventricular size with mild global hypokinesis. 3. Thickened mitral valve with moderate to severe mitral regurgitation with multiple jets. 4. Moderate tricuspid regurgitation with mild pulmonary hypertension. 5. Mild thickening of the aortic valve leaflets with mild aortic regurgitation. 6. Mild atherosclerotic change of the descending thoracic aorta. 7. No shunting across the interatrial septum. MMODL / IJN: [id number] / MTDD
--- NOTE | 2019-02-03 09:08 | CC ---
CARDIAC CATHETERIZATION REPORT Mrs. Smith is a 78-year-old female with known history of hyperlipidemia, history of hypertension, history of atrial fibrillation and mitral regurgitation, who has been complaining of progressive fatigue and lack of energy and her echocardiogram revealed progress of her mitral regurgitation. In view of that, recommendation was made regarding cardiac catheterization. The procedure as well as the risks and the complications were discussed with the patient who is in full understanding and agreement. PROCEDURE: Patient was brought to [facility] in a fasting semi-sedated state after receiving fentanyl and Benadryl and achieving moderate conscious sedated state. Using Xylocaine anesthesia in the Seldinger technique, a 6-Maltese sheath was introduced in the right radial artery. Selective right and left coronary angiography performed using 5-Maltese 3.5 bend right and left Bea catheters. Multiple views of the coronary artery, including hemiaxial views were obtained. Following that 5-Maltese tight pigtail catheter introduced in the left ventricle and a 30-degree OLIVEIRA view of the left ventricle was obtained. Following that, catheter and sheath were removed. Hemostasis was obtained with deployment of a TR band. There was no immediate complication. Patient was returned to her room in stable condition. Of note, the patient received 4000 units of intravenous heparin as well as intra-arterial verapamil. FINDINGS: LEFT MAIN: This is a short size vessel bifurcating in left circumflex, left anterior descending artery. Left main coronary artery has no evidence of high-grade stenosis. LEFT ANTERIOR DESCENDING ARTERY: This is a calcified vessel proximally, reaching to the apex giving rise to a moderately sized diagonal branch. The left anterior descending artery in the proximal segment has 20% to 30% plaque. There is another tubular plaque after the takeoff of the first diagonal branch of mild degree. The rest of the vessel has no high-grade stenosis. LEFT CIRCUMFLEX: This is a nondominant vessel giving rise to 2 obtuse marginal branches the first one is larger in caliber. The takeoff of the first obtuse marginal branch has a plaque of 60% to 70%. The rest of the vessel has no high-grade stenosis. RIGHT CORONARY ARTERY: This is a dominant vessel large in caliber bifurcating distally PDA and posterolateral segment and branches. The right coronary artery as well as branches have no evidence of obstructive coronary artery disease. LEFT VENTRICULOGRAM: Left ventriculogram was performed in 30-degree OLIVEIRA view and revealed a normal left ventricular size. There was minimal global hypokinesis. Estimated ejection fraction 50%. There was evidence of 2 to 3+ mitral regurgitation. CONCLUSION: 1. Calcified proximal left anterior descending artery. 2. 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 3. Mildly impaired left ventricular systolic function with 3+ mitral regurgitation. RECOMMENDATION: At this time, I would recommend continue medical therapy with aggressive coronary risk modification that has been initiated. I do not believe the mitral valve disease is a surgical disease yet. Those findings and recommendation were discussed with the patient and her family and are in full understanding and agreement. Duration of procedure is 22 minutes. MMODL / IJN: [id number] /
[2019-02-03 10:21] VITALS: RESP 16
[2019-02-03 11:05] VITALS: BP 115/56; PULSE 67
== END | disposition home or self-care (01) ==
LOC: CATHCVL 05:55
PROVIDERS: ATTEND Internal Medicine Interventional Cardiology
DX: I08.3 Combined rheumatic disorders of mitral, aortic and tricuspid valves (principal); I25.10 Atherosclerotic heart disease of native coronary artery without angina pectoris; I27.20 Pulmonary hypertension, unspecified; I70.0 Atherosclerosis of aorta; I48.0 Paroxysmal atrial fibrillation; I10 Essential (primary) hypertension; E78.2 Mixed hyperlipidemia; Z79.01 Long term (current) use of anticoagulants; Z79.899 Other long term (current) drug therapy; Z88.8 Allergy status to other drugs, medicaments and biological substances
CPT/HCPCS: 93312; 93320; 93325; 93458; C1769 ×3; C1894; J2250; J2001; J3010; J1644; Q9967

== ENCOUNTER → 2019-08-31 | Outpatient (CLI) | payer MEDICARE ==
[2019-08-31 19:20] LABS: African American GFR (CKD) 49.8 (60.0-200.0); Albumin 4.7 g/dL (3.80-4.90); Albumin/Globulin Ratio 2.24 (1.60-3.17); Anion Gap 12.4 mmol/L (4.00-12.00); BUN/Creat Ratio 24.17 Ratio (12.00-20.00); Calcium 9.2 mg/dL (8.7-10.3); Carbon Dioxide 20.6 mmol/L (21.6-31.8); Chol/HDL Ratio 2.84; Globulin 2.1 g/dL (1.6-3.3); LDL Cholesterol,Calculated 68.6 mg/dL (0.0-131.0); Non-African American GFR(CKD) 42.9 (60.0-200.0); Potassium 4.7 mmol/L (3.5-5.5); Total Bilirubin 0.5 mg/dL (0.2-1.2); Total Protein 6.8 g/dL (6.2-8.2); VLDL Calculation 23.4 mg/dL (5.00-40.00)
== END | disposition home or self-care (01) ==
LOC: LABWHC1 08:52
PROVIDERS: ATTEND Internal Medicine Interventional Cardiology
DX: E78.2 Mixed hyperlipidemia (principal); I48.0 Paroxysmal atrial fibrillation
CPT/HCPCS: 36415; 80053; 80061; 84443

== ENCOUNTER → 2019-09-26 | Outpatient (CLI) | payer MEDICARE ==
[2019-09-27 01:36] LABS: African American GFR (CKD) 45.2 (60.0-200.0); Anion Gap 10.2 mmol/L (4.00-12.00); BUN/Creat Ratio 25.38 Ratio (12.00-20.00); Calcium 9.2 mg/dL (8.7-10.3); Carbon Dioxide 23.8 mmol/L (21.6-31.8); Potassium 4.5 mmol/L (3.5-5.5)
== END | disposition home or self-care (01) ==
LOC: LABWHC1 13:37
PROVIDERS: ATTEND Nurse Practitioner Adult Health
DX: I10 Essential (primary) hypertension (principal)
CPT/HCPCS: 36415; 80048